=== PATIENT | female | born 1970 | race Caucasian/White ===

== ENCOUNTER 2020-03-21 02:26 | Inpatient (IN) | payer OTHER ==
[~2020-03-21] VITALS: Ht 175.3 cm; Wt 90.5 kg
[~2020-03-21 02:26] MED LIST: ALPR0.25 PO; HYDR-3240 PO; HYDR25CA PO; IBUP-1222 PO; ONDA4TAB10 PO; TRAZ50TA66 PO
[2020-03-21] MEDS ORDERED: ONDANSETRON 2MG/ML, 2ML ONE ×2 (02:53→05:48)
[2020-03-21] MEDS ORDERED: MORPHINE SULFATE 4 MG/ML, 1ML ONE ×2 (02:54→03:16)
[2020-03-21] MEDS: MORPHINE SULFATE 4 MG/ML, 1ML IVPush PRN ×2 (02:58→03:21)
[2020-03-21 03:00] LABS: BASOPHILS # (AUTO) 0.09 x10^3/uL (0-0.1); BASOPHILS % (AUTO) 1 % (0-1); EOSINOPHILS % (AUTO) 2 % (1-7); LYMPHOCYTES # (AUTO) 4.22 x10^3/uL (1-3.4); LYMPHOCYTES % (AUTO) 38 % (22-44); MD NO; MEAN CORPUSCULAR HEMOGLOBIN 32.1 pg (27.0-34.8); MEAN CORPUSCULAR HGB CONC 34.1 g/dL (32.4-35.8); MEAN CORPUSCULAR VOLUME 94.2 fL (80-100); MEAN PLATELET VOLUME 7.8 fL (7.4-10.4); MONOCYTES # (AUTO) 0.71 x10^3/uL (0.2-0.8); MONOCYTES % (AUTO) 6 % (2-9); NEUTROPHILS # (AUTO) 5.81 x10^3/uL (1.8-6.8); NEUTROPHILS % (AUTO) 53 % (42-75); PLATELET COUNT 322 x10^3/uL (130-400); RED BLOOD COUNT 4.22 x10^6/uL (3.82-5.3); RED CELL DISTRIBUTION WIDTH 14.1 % (9.6-15.2)
[2020-03-21] MEDS ORDERED: ONDANSETRON 2MG/ML, 2ML IVPush ONE (03:00)
[2020-03-21 03:03] LABS: MICROSCOPIC AUTO
[2020-03-21 03:09] LABS: ALBUMIN 3.6 g/dL (3.4-5.0); ANION GAP 7 mmol/L (5-15); CALCIUM 8.7 mg/dL (8.5-10.1); CHLORIDE 108 mmol/L (98-107); CREATININE 0.95 mg/dL (0.55-1.02)
--- NOTE | 2020-03-21 03:24 | NUR ---
PT TO ED WITH C/O LEFT SIDED FLANK PAIN THAT STARTED YESTERDAY. PT REPORTS HX OF KIDNEY STONES. REPORTS SHE WAS AT ANOTHER ER 3 MONTHS AGO AND WAS TOLD SHE HAD A 7MM STONE IN HER LEFT KIDNEY. REPORTS SHE WAS SUPPOSED TO FOLLOW UP WITH UROLOGY AND HAVE A STENT PLACED AND SHE REPORTS SHE DID NOT FOLLOW UP DUE TO LACK OF INSURANCE. PT REPORTS PAIN INCREASED TONIGHT 10/10. PT VISIBLY UNCOMFORTABLE AND ROCKING BACK AND FORTH IN THE ROOM. DENIES FEVER OR VOMITING. IV PLACED IN LEFT WRIST, LABS DRAWN AND SENT, UA OBTAINED AND SENT. PT MEDICATED PER EMAR. PT TO CT.
[2020-03-21] MEDS ORDERED: CEFTRIAXONE PMX 1GM/50ML 50 ML IV ONE (03:30)
[2020-03-21] MEDS ORDERED: CEFTRIAXONE PMX 1GM/50ML 50 ML ONE (03:30)
--- NOTE | 2020-03-21 03:35 | NUR ---
PT REPORTS PAIN NOW 04/07. ROCEPHIN INFUSING. AWAITING CT RESULTS.
[2020-03-21] MEDS ORDERED: KETOROLAC 30 MG/1 ML ONE (03:57)
[2020-03-21] MEDS ORDERED: KETOROLAC 30 MG/1 ML IVPush ONE (04:00)
[2020-03-21 04:11] LABS: MICROSCOPIC AUTO
[2020-03-21] MEDS ORDERED: HYDROmorphone 1 MG/ML, 1ML INJ ONE (04:33)
--- NOTE | 2020-03-21 04:53 | NUR ---
REPORT CALLED TO DILLON CARRERA IN [place].
[2020-03-21] MEDS ORDERED: HYDROmorphone 2 MG/ML, 1ML IVPush PRN (05:00)
[2020-03-21] MEDS ORDERED: BALANCED SALT OPHTH IRRIG SOLN 18ML ONE (05:21)
[2020-03-21] MEDS ORDERED: MIDAZOLAM 1 MG/ML, 2ML ONE (05:24)
[2020-03-21] MEDS ORDERED: FENTANYL PF 100 MCG/2ML ONE (05:24)
[2020-03-21] MEDS ORDERED: LIDOCAINE-MPF 2% ,5ML ONE (05:47)
[2020-03-21] MEDS ORDERED: PROPOFOL 10 MG/ML, 20ML ONE (05:48)
[2020-03-21] MEDS ORDERED: DEXAMETHASONE 4 MG/ML, 1ML ONE (05:48)
[2020-03-21] MEDS ORDERED: SUCCINYLCHOLINE 20 MG/ML, 10ML ONE (05:48)
[2020-03-21] MEDS ORDERED: OMNIPAQUE 350 MG/ML, 50 ML BOTTLE ONE (05:58)
[2020-03-21] MEDS ORDERED: hydrALAzine 20 MG/ML, 1ML IV PRN (06:00)
[2020-03-21] MEDS ORDERED: LABETALOL 5MG/ML, 20ML IV PRN (06:00)
[2020-03-21] MEDS ORDERED: HYDROmorphone 1 MG/ML, 1ML INJ IVPush PRN (06:00)
[2020-03-21] MEDS ORDERED: PROMETHAZINE 25 MG/ML, 1ML IVPush PRN (06:00)
[2020-03-21] MEDS ORDERED: ACETAMINOPHEN 325 MG TABLET PO PRN (06:00)
[2020-03-21] MEDS ORDERED: MEPERIDINE/PF 25MG/0.5ML IVPush PRN (06:00)
[2020-03-21] MEDS ORDERED: ONDANSETRON 2MG/ML, 2ML IVPush PRN ×2 (06:00→09:00)
[2020-03-21] MEDS ORDERED: OXYcodone 5 MG/5 ML ORAL.SOL UDC PO PRN (06:00)
[2020-03-21] MEDS ORDERED: EPHEDRINE 50 MG/ML, 1ML IVPush PRN (06:00)
[2020-03-21] MEDS ORDERED: FENTANYL PF 100 MCG/2ML IV PRN (06:00)
[2020-03-21] MEDS ORDERED: OMNIPAQUE 350 MG/ML, 50 ML BOTTLE IV ONE (06:04)
[2020-03-21 06:45] VITALS: BP 120/78
[2020-03-21] MEDS ORDERED: ONDANSETRON 4 MG TABLET PO PRN (09:00)
[2020-03-21] MEDS: SODIUM CHLORIDE 0.9% 1,000 ML IV SCH (09:37)
[2020-03-21] MEDS: ACETAMINOPHEN 325 MG TABLET PO SCH ×3 (09:37→20:36)
[2020-03-21] MEDS: NICOTINE 21 MG/24 HR PATCH.TD24 TD SCH (09:37)
[2020-03-21] MEDS: HEPARIN 5,000 UNITS/ML, 1ML SQ SCH ×2 (09:38→17:42)
[2020-03-21 12:45] VITALS: BP 120/76
[2020-03-21] MEDS: KETOROLAC 30 MG/1 ML IVPush PRN ×2 (14:30→20:37)
[2020-03-21 20:03] VITALS: BP 145/82
[2020-03-21] MEDS: TRAZODONE 50MG TABLET PO SCH ×2 (20:37→21:00)
[2020-03-21] MEDS ORDERED: CEFTRIAXONE PMX 2GM/50ML 50 ML IV SCH (21:00)
[2020-03-22] MEDS: SODIUM CHLORIDE 0.9% 1,000 ML IV SCH (01:31)
[2020-03-22] MEDS: HEPARIN 5,000 UNITS/ML, 1ML SQ SCH ×2 (01:32→08:14)
[2020-03-22 01:34] VITALS: BP 125/86
[2020-03-22] MEDS: KETOROLAC 30 MG/1 ML IVPush PRN (02:18)
[2020-03-22] MEDS: ACETAMINOPHEN 325 MG TABLET PO SCH ×2 (03:44→08:13)
[2020-03-22] MEDS: NICOTINE 21 MG/24 HR PATCH.TD24 TD SCH (05:37)
[2020-03-22 05:41] LABS: MEAN CORPUSCULAR VOLUME 96.8 fL (80-100); MEAN PLATELET VOLUME 8.1 fL (7.4-10.4); PLATELET COUNT 264 x10^3/uL (130-400); RED BLOOD COUNT 3.83 x10^6/uL (3.82-5.3)
[2020-03-22 05:43] LABS: ANION GAP 5 mmol/L (5-15); CALCIUM 8.6 mg/dL (8.5-10.1); CHLORIDE 109 mmol/L (98-107); CREATININE 0.92 mg/dL (0.55-1.02)
[2020-03-22 06:37] LABS: BASOPHILS # (AUTO) 0.04 x10^3/uL (0-0.1); BASOPHILS % (AUTO) 0 % (0-1); EOSINOPHILS % (AUTO) 0 % (1-7); LYMPHOCYTES # (AUTO) 1.72 x10^3/uL (1-3.4); LYMPHOCYTES % (AUTO) 9 % (22-44); MD SCAN; MONOCYTES # (AUTO) 0.92 x10^3/uL (0.2-0.8); MONOCYTES % (AUTO) 5 % (2-9); NEUTROPHILS # (AUTO) 17.11 x10^3/uL (1.8-6.8); NEUTROPHILS % (AUTO) 86 % (42-75)
[2020-03-22 07:02] VITALS: BP 136/89
[2020-03-22] MEDS ORDERED: TRAZODONE 50MG TABLET PO SCH (09:00)
[2020-03-22] MEDS ORDERED: CIPR250T27 PO (11:53)
[2020-03-22] MEDS ORDERED: IBUP-1623 PO (11:53)
[2020-03-22 13:14] VITALS: BP 128/87
== END 2020-03-22 13:39 | disposition home or self-care (01) | DRG 660 ==
LOC: OR 04:55 → EDIP 05:03 → 4NE 07:04 → DCLOUNGE 03-22 13:30
PROVIDERS: ADMIT Hospitalist; ATTEND Hospitalist
PROC: 0T778DZ Dilation of Left Ureter with Intraluminal Device, Via Natural or Artificial Opening Endoscopic (ICD-10-PCS; 2020-03-21)
PROC: BT1F1ZZ Fluoroscopy of Left Kidney, Ureter and Bladder using Low Osmolar Contrast (ICD-10-PCS; principal; 2020-03-21 05:15)
DX: N13.6 Pyonephrosis (principal); N30.00 Acute cystitis without hematuria; I10 Essential (primary) hypertension; G47.00 Insomnia, unspecified; F17.210 Nicotine dependence, cigarettes, uncomplicated; E66.9 Obesity, unspecified; Z90.710 Acquired absence of both cervix and uterus; Z79.899 Other long term (current) drug therapy; Z90.49 Acquired absence of other specified parts of digestive tract; Z79.82 Long term (current) use of aspirin; Z80.0 Family history of malignant neoplasm of digestive organs; Z85.42 Personal history of malignant neoplasm of other parts of uterus; Z87.11 Personal history of peptic ulcer disease; Z68.29 Body mass index [BMI] 29.0-29.9, adult
CPT/HCPCS: 36415; 74420; J3490; 74176; 80048; 81001; 82040; 85025; 87077; 87086; 87186; 96365; 96375; 99406; G0378; J0696; J1100; J1170; J1644; J1885; J2250; J2405; J2704; J3010; Q9967; C1758; C2617; J0330; J2270; J7030

== ENCOUNTER → 2020-04-19 | Outpatient (CLI) | payer OTHER ==
[~2020-04-19] MED LIST changes: +CIPR250T27 PO; +IBUP-1623 PO
== END | disposition home or self-care (01) ==
LOC: STAR 15:19
PROVIDERS: ATTEND Urology
DX: Z01.818 Encounter for other preprocedural examination (principal); N20.0 Calculus of kidney
CPT/HCPCS: 93005